=== PATIENT | female | born 1990 | race Caucasian/White ===

== ENCOUNTER 2019-11-17 13:22 | Outpatient (CLI) | payer OTHER, SELFPAY ==
--- NOTE | ~2019-11-17 | XR_ITS ---
EXAMINATION: XR chest 2V DATE: 11/17/2019 13:48 INDICATION: Shortness of breath. Dizziness. TECHNIQUE: Frontal and lateral views of the chest were obtained. COMPARISON: Chest 2 views 01/28/2007 FINDINGS: The chest demonstrates clear lungs without pneumonia, pleural effusion, or pneumothorax. Th e heart size is normal. IMPRESSION: 1. No acute cardiopulmonary disease. Reviewed, dictated and finalized at location A. ESS SUPERVISOR
== END 2019-11-17 13:23 | disposition home or self-care (01) ==
LOC: ANHIMG 13:36
PROVIDERS: PCP Emergency Medicine; Visit Provider Emergency Medicine
DX: Z72.0 Tobacco use (principal)
CPT/HCPCS: 71046

== ENCOUNTER 2019-11-17 13:57 | Emergency (ER) | payer OTHER, SELFPAY ==
[2019-11-17 14:09] VITALS: BP 124/82; PULSE 77; RESP 18; TEMP 36.7; O2SAT 100
--- NOTE | 2019-11-17 15:19 | ED.GENADULT ---
HPI - General Adult General Chief complaint: Unspecified Stated complaint: multiple complains & needs work release note Time Seen by Provider: 11/17/19 13:59 Source: patient Mode of arrival: ambulatory Limitations: no limitations History of Present Illness HPI narrative: Patient is a 29-year-old female who presents to emergency department for evaluation of headache that is chronic in nature and has been present for 3 days off and on taking [id number] medications with minimal improvement patient also notes minor cough saw primary care yesterday had a chest radiograph performed patient notes she gets intermittent vomiting at times with the headaches patient on arrival presents with normal gait resting comfortably in the room in no distress Related Data Allergies Allergy/AdvReac Type Severity Reaction Status Date / Time No Known Allergies Allergy Unverified 07/06/18 23:14 Review of Systems Review of Systems: All systems reviewed & are unremarkable except as noted in HPI and below PMFSH Social History Social History (Updated 11/17/19 @ 15:23 by Anish Monzon PA-C) Smoking status: Current every day smoker Exam Narrative: Exam Narrative: GENERAL: Well-appearing, well-nourished, and in no acute distress. HEAD: Normocephalic, atraumatic. EYES: PERRLA and EOMI. ENT: Nares clear, no rhinorrhea or epistaxis. Mucous membranes moist. Oropharynx without tonsillar hypertrophy exudate or other lesions. NECK: Supple. No adenopathy or masses. CHEST: Clear to auscultation. No respiratory distress. No wheezes rales or rhonchi HEART: Regular rate and rhythm. No murmur heard. EXTREMITIES: Normal range of motion. No edema. SKIN: Warm, dry, no rash. NEURO: No focal deficits. Alert and oriented x3. Cranial nerves II through XII grossly intact. Normal speech and gait PSYCH: Normal mood and affect. Course Course Emergency Course: Patient in the room in no distress aware of case findings treatment plan and diagnosis Vital Signs Vital signs: Vital Signs Temperature 98.1 F 11/17/19 14:09 Pulse Rate 77 11/17/19 14:09 Respiratory Rate 18 11/17/19 14:09 Blood Pressure 124/82 11/17/19 14:09 Pulse Oximetry 100 11/17/19 14:09 Temperature 98.1 F 11/17/19 14:09 Pulse Rate 77 11/17/19 14:09 Respiratory Rate 18 11/17/19 14:09 Blood Pressure 124/82 11/17/19 14:09 Pulse Oximetry 100 11/17/19 14:09 Medical Decision Making MDM Narrative Medical decision making narrative: Patients headache was not sudden or maximal in onset. There are o focal neurological deficits on exam. Subarachnoid hemorrhage is felt to be unlikey at this time. There is no history of fever, and neck is supple without meningismus, making meningitis unlikely. No traumatic history or signs of trauma on exam. No risk factors for CVA, risk factors reviewed. NO ocular signs on exam and in history to suggest acute glaucoma. Patients headache is felt to be a reasonable candidate for outpatient evaluation Vital Signs Vital Signs: Vital Signs Temperature 98.1 F 11/17/19 14:09 Pulse Rate 77 11/17/19 14:09 Respiratory Rate 18 11/17/19 14:09 Blood Pressure 124/82 11/17/19 14:09 Pulse Oximetry 100 11/17/19 14:09 Temperature 98.1 F 11/17/19 14:09 Pulse Rate 77 11/17/19 14:09 Respiratory Rate 18 11/17/19 14:09 Blood Pressure 124/82 11/17/19 14:09 Pulse Oximetry 100 11/17/19 14:09 Discharge Plan Discharge Clinical Impression: Headache Patient Disposition: Home, Self-Care Condition: Stable Instructions: Antibiotic Form, Urinary Tract Infection in Women (DC), Acute Headache (DC) Additional Instructions: Follow up with your primary care doctor in 5-7 days for re-evaluation. Go to ER for worsening pain, vision changes, nausea/vomiting, fever/chills, weakness, chest pain, shortness of breath, numbness/tingling, slurred speech, difficulty walking, change in mental status etc. or any other conc
[2019-11-17] MEDS: KETOROLAC (*BKC) 60 MG/2 ML VIAL IM (15:24)
[2019-11-17 15:33] LABS: Add Urine Microscopic? YES; Appearance Urine Cloudy (Clear); Bacteria Urine Trace /hpf; Bilirubin Urine Negative (Negative); Blood Urine Negative (Negative); Color Urine Straw (Yellow); Glucose Urine UA Negative (Negative); Ketones Urine Negative (Negative); Leukocyte Esterase Ur 3+ LEU/UL (Negative); Mucus Urine Rare /lpf; Nitrate Urine Negative (Negative); Protein Urine Negative (Negative); Specific Grav Ur 1.005 (1.001-1.035); Squamous Epithelial Cell Urine Many /hpf (Few); Urobilinogen Urine Negative mg/dL (<2.0); WBC Urine 21-30 /hpf
== END 2019-11-17 15:58 | disposition home or self-care (01) ==
PROVIDERS: Emergency Medicine Emergency Medical Services; Emergency Provider Emergency Medicine; PCP Emergency Medicine
DX: R51 Headache (principal); F17.200 Nicotine dependence, unspecified, uncomplicated
CPT/HCPCS: 71046; 81001; 81025; 87086; 96372; 99283; J1885

== ENCOUNTER → 2020-11-15 06:58 | Outpatient (CLI) | payer OTHER, SELFPAY ==
[2020-11-15 23:33] LABS: SARS-CoV-2 RNA PCR Negative
== END ==
PROVIDERS: PCP Emergency Medicine; Visit Provider Emergency Medicine
DX: R06.02 Shortness of breath (principal); R06.2 Wheezing; Z20.822 Contact with and (suspected) exposure to COVID-19
CPT/HCPCS: C9803; U0003; U0005

== ENCOUNTER 2022-01-04 13:57 | Emergency (ER) | payer OTHER, SELFPAY ==
--- NOTE | ~2022-01-04 | XR_ITS ---
EXAMINATION: [id number]_CR DATE: 01/04/2022 16:02 INDICATION: Right rib pain. TECHNIQUE: A frontal view of the chest and 2 views on 4 radiographs of the right ribs were obtained. COMPARISON: Chest 2 views 11/17/2019 FINDINGS: The chest demonstrates clear lungs without pneumonia, pleural effusion, or pneumothorax. Th e heart size is normal. IMPRESSION: 1. No rib fracture. Reviewed, dictated and finalized at location B. IMPRESSION: 1. No rib fracture.
[2022-01-04 14:27] VITALS: BP 133/92; PULSE 113; RESP 17; TEMP 36.7; O2SAT 100
--- NOTE | 2022-01-04 15:47 | ECG_ITS ---
Measurements Intervals [place] Rate: 74 P: 68 CO: 125 QRS: 85 QRSD: 86 T: 49 QT: 355 QTc: 396 Interpretive Statements SINUS RHYTHM WITH SINUS ARRHYTHMIA WANDERING BASELINE ARTIFACT POSSIBLE LEFT ATRIAL ENLARGEMENT [-0.1mV P WAVE IN V1/V2] BORDERLINE ECG NO PREVIOUS ECG AVAILABLE FOR COMPARISON Electronically Signed On 01-04-2022 17:09:43 CDT by David Lechuga M.D.
[2022-01-04] MEDS: HYDROcodone/acetaminophen (*CRX) 5-325 MG TABLET 1 TAB PO (16:05)
[2022-01-04 16:16] LABS: Basophils Absolute Auto 0.1 K/mm3 (0.0-0.1); Basophils Percent Auto 0.9 % (0.2-1.2); Eosinophils Absolute Auto 0.1 K/mm3 (0-0.3); Eosinophils Percent Auto 0.8 % (0-4.4); Hematocrit 44.7 % (37.0-47.0); Hemoglobin 14.9 g/dL (12.0-15.0); Immature Granulocyte Absolute 0.03 K/mm3 (0.00-0.031); Immature Granulocyte Percent A 0.3 % (0-0.5); Lymphocytes Absolute Auto 1.81 K/mm3 (0.9-3.2); Lymphocytes Percent Auto 19.7 % (18.3-44.2); Mean Corpuscular HGB Conc 33.3 g/dl (32-36); Mean Corpuscular Hemoglobin 30.7 pg (26-34); Mean Platelet Volume 8.6 fl (7.4-10.4); Monocytes Absolute Auto 0.6 K/mm3 (0.1-0.6); Neutrophils Absolute Auto 6.6 K/mm3 (1.3-6.7); Neutrophils Percent Auto 72.3 % (45.5-73.1); Platelet Count Result 327 k/mm3 (150-375); Red Blood Count 4.86 M/mm3 (4.2-5.4); Red Cell Distribution Width 13.4 % (11.5-14.5); White Blood Count 9.2 K/mm3 (4.5-10.0)
[2022-01-04 16:27] LABS: D Dimer 0.43 ug/mL (<0.48)
--- NOTE | 2022-01-04 16:29 | ED.GENADULT ---
HPI - General Adult General Chief complaint: Unspecified Stated complaint: right rib pain Time Seen by Provider: 01/04/22 15:42 Source: RN notes reviewed History of Present Illness HPI narrative: Patient presents to emergency department from home for right rib pain. Patient states pain is located over the right anterior ribs and radiates around to the right side pain is been present for the past 1 week is described as sharp and stabbing and worse with deep inspiration and movement of the torso she denies any known direct trauma or injury she denies any pain going into her back she denies any shortness of breath abdominal pain nausea or vomiting patient has been taking ibuprofen at home for the pain with no relief Related Data Home Medications Medication Instructions Recorded Confirmed terbinafine HCl 1 % topical cream 1 applic TOPICAL BID 05/28/20 Allergies Allergy/AdvReac Type Severity Reaction Status Date / Time No Known Allergies Allergy Verified 01/04/22 14:30 Review of Systems Review of Systems: Gen.: Denies fevers or chills ENT: Denies congestion Respiratory: Denies shortness of breath or cough CV: Reports chest wall pain GI: Denies abdominal pain nausea, emesis or diarrhea Musculoskeletal: Denies back pain or muscle pain Neuro: Denies numbness, tingling, weakness or focal weakness Skin: Denies rash Except as documented, all other systems reviewed and negative PMFSH Past Medical History Medical History Headache Obstructive sleep apnea Social History Social History Smoking status: Current every day smoker Alcohol intake: current Substance use: current Substance use type: marijuana Exam Narrative: APPEARANCE: No acute distress, nontoxic, resting in bed EYES: EOMI HEENT: Normocephalic, atraumatic, OMM RESPIRATORY: No respiratory distress Clear to auscultation bilaterally with no rhonchi wheezing or rales. CARDIOVASCULAR: Regular rate and rhythm without murmurs rubs or gallops. Chest: Tender palpation of the right anterior lateral ribs 6 through 8 pain increased with deep inspiration and rotation of the torso there is no tenderness in the back in this region there is no overlying rash ABDOMINAL: Soft, nontender, nondistended, no rebound or guarding no tenderness in right upper quadrant MUSCULOSKELETAl: Moves all extremities. No clubbing, cyanosis or edema. NEURO: Awake and alert. Following commands, speech normal, no focal deficits SKIN:: Warm, dry. No rashes lesions or abrasions PSYCHIATRIC: Normal affect/mood, Course Course Emergency Course: Discussed with patient results of workup and diagnosis. Discussed need for follow-up with primary care, proper use of medication, and reasons to return to the emergency department. Patient understands and agrees to current treatment plan Vital Signs Vital signs: Vital Signs Temperature 98.0 F 01/04/22 14:27 Pulse Rate 113 H 01/04/22 14:27 Respiratory Rate 17 01/04/22 14:27 Blood Pressure 133/92 H 01/04/22 14:27 Pulse Oximetry 100 01/04/22 14:27 Temperature 98.0 F 01/04/22 14:27 Pulse Rate 113 H 01/04/22 14:27 Respiratory Rate 17 01/04/22 14:27 Blood Pressure 133/92 H 01/04/22 14:27 Pulse Oximetry 100 01/04/22 14:27 Medical Decision Making MDM Narrative Medical decision making narrative: Patient?s injury is consistent with muscular skeletal etiology. No signs of neurologic or vascular compromise to exam. Compartments are soft without signs of compartment syndrome. Pain is consistent with exam and injury Vital Signs Vital Signs: Vital Signs Temperature 98.0 F 01/04/22 14:27 Pulse Rate 113 H 01/04/22 14:27 Respiratory Rate 17 01/04/22 14:27 Blood Pressure 133/92 H 01/04/22 14:27 Pulse Oximetry 100 01/04/22 14:27 Temperature 98.0 F 01/04/22 14:27 Pulse Rate 113 H 01/04/22 14:27 Res
[2022-01-04 16:37] LABS: Alanine Aminotransferase 16 U/L (4-35); Albumin Level 4.8 g/dL (3.5-5.1); Alkaline Phosphatase 71 U/L (38-126); Anion Gap 5 mmol/L (8-16); Aspartate Amino Transferase 31 U/L (14-36); Bilirubin,Total 0.2 mg/dL (0.2-1.3); Blood Urea Nitrogen 10 mg/dL (7-17); Carbon Dioxide 27 mmol/L (22-30); Chloride 102 mmol/L (98-107); Estimated CRCL calculation 78 ml/min; Estimated Glomerular Filt Rate > 60; Glucose 91 mg/dL (65-110); Potassium 4.1 mmol/L (3.4-5.0); Sodium 134 mmol/L (137-145)
== END 2022-01-04 17:24 | disposition home or self-care (01) ==
PROVIDERS: Emergency Provider Emergency Medicine; PCP Emergency Medicine
DX: R07.89 Other chest pain (principal); G47.33 Obstructive sleep apnea (adult) (pediatric); F17.200 Nicotine dependence, unspecified, uncomplicated; R94.31 Abnormal electrocardiogram [ECG] [EKG]
CPT/HCPCS: 36415; 71101; 80053; 85025; 85380; 93005; 99283; A9270

== ENCOUNTER 2022-08-05 13:52 | Emergency (ER) | payer OTHER, SELFPAY ==
--- NOTE | ~2022-08-05 | XR_ITS ---
EXAMINATION: XR ribs LT 2V INDICATION: Left chest pain TECHNIQUE: 3 views of the left ribs were obtained. COMPARISON: 11/17/2019 FINDINGS: The visualized lungs are clear. No pleural effusion or pneumothorax identified. The cardiom ediastinal silhouette is normal. No displaced rib fracture is identified. IMPRESSION: 1. No acute cardiopulmonary abnormality or evidence of displaced rib fracture. Reviewed, dictated and finalized at location F. PPER APPRENTICE
[2022-08-05 14:08] VITALS: BP 129/95; PULSE 120; RESP 20; TEMP 37.1; O2SAT 99
[2022-08-05 16:35] VITALS: PULSE 76; RESP 16
[2022-08-05] MEDS: IPRATROPIUM BR 0.02% INH SOLN 0.5 MG/2.5 ML VIAL INHALATION (16:35)
[2022-08-05] MEDS: ALBUTEROL SULFATE NEB 2.5 MG/3 ML INH 5 MG INHALATION (16:35)
[2022-08-05 16:51] VITALS: PULSE 88; RESP 18
[2022-08-05] MEDS: predniSONE 20 MG TABLET 60 MG PO (17:25)
[2022-08-05] MEDS: ACETAMINOPHEN 500 MG TABLET 1000 MG PO (17:26)
--- NOTE | 2022-08-05 17:33 | ED.GENADULT ---
HPI - General Adult General Chief complaint: Upper Respiratory Infection Stated complaint: RIB TIGHTNESS,COUGH Time Seen by Provider: 08/05/22 15:47 Source: RN notes reviewed History of Present Illness HPI narrative: Patient presents emergency department from home for left rib pain. Patient states symptoms again approximately 2 weeks ago. Patient states she has pain from her left lower ribs radiating around into her back. She states that the pain is worse with coughing as well as rotation of the torso and bending she states that she had been coughing a few days ago and felt a pop in that region that it worsened the pain. States she has not take anything for the pain today states that she does have asthma and has had to use her inhaler more and has been coughing more states her cough has been nonproductive. She denies any fevers or chills abdominal pain nausea vomiting or any other symptoms Related Data Home Medications Medication Instructions Recorded Confirmed terbinafine HCl 1 % topical cream 1 applic topical BID 05/28/20 Allergies Allergy/AdvReac Type Severity Reaction Status Date / Time No Known Allergies Allergy Verified 01/04/22 14:30 Review of Systems Review of Systems: Gen.: Denies fevers or chills ENT: Denies congestion Respiratory: See HPI CV: Denies chest pain or palpitations reports left-sided chest pain GI: Denies abdominal pain nausea, emesis or diarrhea Musculoskeletal: Denies back pain or muscle pain Neuro: Denies numbness, tingling, weakness or focal weakness Skin: Denies rash Except as documented, all other systems reviewed and negative [facility] Past Medical History Medical History Headache Obstructive sleep apnea Social History Social History Smoking status: Current every day smoker Alcohol intake: current Substance use: current Substance use type: marijuana Exam Narrative: APPEARANCE: No acute distress, nontoxic, resting in bed EYES: EOMI HEENT: Normocephalic, atraumatic, OMM RESPIRATORY: No respiratory distress wheezing in the bilateral upper lung mcgee no rhonchi or rales CARDIOVASCULAR: Regular rate and rhythm without murmurs rubs or gallops. Chest: Tender over the left ribs over the anterior chest just to the left of the sternum and regions of ribs 6 through 8 with corresponding tenderness in the back just to the left of the midline of T6-8 pain increased with deep inspiration rotation of the torso and coughing ABDOMINAL: Soft, nontender, nondistended, no rebound or guarding MUSCULOSKELETAl: Moves all extremities. No clubbing, cyanosis or edema. NEURO: Awake and alert. Following commands, speech normal, no focal deficits SKIN:: Warm, dry. No rashes lesions or abrasions PSYCHIATRIC: Normal affect/mood, Course Course Emergency Course: Patient given breathing treatment in ED following breathing treatment repeat lung exam is clear to auscultation bilateral Discussed with patient results of workup and diagnosis. Discussed need for follow-up with primary care, proper use of medication, and reasons to return to the emergency department. Patient understands and agrees to current treatment plan Vital Signs Vital signs: Vital Signs Temperature 98.8 F 08/05/22 14:08 Pulse Rate 120 H 08/05/22 14:08 Respiratory Rate 20 08/05/22 14:08 Blood Pressure 129/95 H 08/05/22 14:08 Pulse Oximetry 99 08/05/22 14:08 Oxygen Delivery Room Air 08/05/22 14:08 Temperature 98.8 F 08/05/22 14:08 Pulse Rate 88 08/05/22 16:51 Respiratory Rate 18 08/05/22 16:51 Blood Pressure 129/95 H 08/05/22 14:08 Pulse Oximetry 99 08/05/22 14:08 Oxygen Delivery Room Air 08/05/22 14:08 Medical Decision Making Vital Signs Vital Signs: Vital Signs Temperature 98.8 F 08/05/22 14:08 Pulse Rate 120 H 08/05/22 14:08 Respiratory Rate 20 08/05/22 14:08 Blo
== END 2022-08-05 17:51 | disposition home or self-care (01) ==
PROVIDERS: Emergency Provider Emergency Medicine; PCP Emergency Medicine
DX: J45.909 Unspecified asthma, uncomplicated (principal); R07.89 Other chest pain; G47.30 Sleep apnea, unspecified
CPT/HCPCS: 71100; 94640; 99283; A9270; J7512